=== PATIENT | female | born 2005 | race Hispanic/Latino ===

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

== ENCOUNTER 2024-04-19 08:47 | Outpatient (CLI) | payer SELFPAY ==
--- NOTE | ~2024-04-19 | US_ITS ---
COMPLETE ABDOMINAL ULTRASOUND Ordering provider: Keny Salcido MD History: . Unspecified abdominal pain . Comparison: None. FINDINGS: LIVER: Normal size and echotexture. No focal hepatic lesions or perihepatic fluid collections are ruiz ntified. GALLBLADDER: Unremarkable. No evidence for stones, sludge, gallbladder wall thickening or pericholecy stic fluid collections. A negative sonographic Tapia's sign was noted. BILIARY DUCTS: No evidence for intra or extrahepatic biliary dilation. Common bile duct measures 2 mm in diameter which is within normal limits. PANCREAS: Normal echotexture and size. SPLEEN: Normal size, echotexture and contour and measures cm in length. KIDNEYS: Right measures 8.5x 3.6x 5.8 cm in length and the left 9.9x 5.7x 4.8 cm in length. There is no evidence for hydronephrosis, solid renal mass, renal calculi or perinephric fluid collections. No renal cysts. UPPER ABDOMINAL AORTA: Normal in caliber. IVC: Patent. FREE FLUID: None. IMPRESSION: Unremarkalbe complete ultrasound of the abdomen. Reviewed, dictated and finalized at location A.
== END 2024-04-19 08:48 ==
PROVIDERS: PCP Obstetrics & Gynecology; Visit Provider Obstetrics & Gynecology
DX: R10.2 Pelvic and perineal pain (principal)
CPT/HCPCS: 76700